=== PATIENT | female | born 1965 | race Caucasian/White ===

== ENCOUNTER 2017-06-24 23:00 | Emergency (ER) | payer BC, OTHER ==
[~2017-06-24] VITALS: Ht 172.7 cm; Wt 110.0 kg
[~2017-06-24 23:00] MED LIST: FLUO20TA20 PO; GABA300 PO; GABA600T PO; GLUCTAB PO; METF500 PO; PROZ20CA11 PO
[2017-06-24 23:08] VITALS: BP 208/98; PULSE 86; RESP 18; TEMP 98.5; O2SAT 98
[2017-06-24] MEDS ORDERED: LIDOCAINE HCL 1% 50 ML VIAL INFIL ONE (23:15)
[2017-06-24] MEDS ORDERED: METF1000 PO (23:20)
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
[2017-06-24] MEDS ORDERED: TETANUS/DIPHTHERIA TOXOID ADULT 0.5 ML VIAL IM ONE (23:30)
[2017-06-24 23:50] LABS: AUTOMATED NEUTROPHIL # 3.8 TH/MM3 (1.8-7.7); BASOPHIL % 0.5 % (0.0-2.0); EOSINOPHIL # 0.6 TH/MM3 (0-0.4); EOSINOPHIL % 8.4 % (0.0-4.0); HEMATOCRIT 35.1 % (35.0-46.0); HEMO FLAGS DIFF FINAL; LYMPH % 26.1 % (9.0-44.0); LYMPHOCYTE # 1.8 TH/MM3 (1.0-4.8); MEAN CELL VOLUME 92.2 FL (80.0-100.0); MEAN CORPUSCULAR HEMOGLOBIN 30.8 PG (27.0-34.0); MEAN CORPUSCULAR HGB CONC 33.4 % (32.0-36.0); MONO % 11.1 % (0.0-8.0); NEUT % 53.9 % (16.0-70.0); PLATELET COUNT 186 TH/MM3 (150-450); RED BLOOD COUNT 3.81 MIL/MM3 (4.00-5.30); RED CELL DISTRIBUTION WIDTH 13.6 % (11.6-17.2); WHITE BLOOD COUNT 7.1 TH/MM3 (4.0-11.0)
[2017-06-24 23:57] LABS: APTT (PATIENT) 33.4 SEC (24.3-30.1); INTERNATIONAL NORMALIZED RATIO 1.1 RATIO; PROTHROMBIN TIME - PATIENT 12.2 SEC (9.8-11.6)
[2017-06-25 00:09] LABS: ANION GAP 8 MEQ/L (5-15); AST (GOT) 73 U/L (15-37); BICARBONATE 25.6 MEQ/L (21.0-32.0); BLOOD UREA NITROGEN 16 MG/DL (7-18); CHLORIDE 106 MEQ/L (98-107); GLOMERULAR FILTRATION RATE 70 ML/MIN (>89); POTASSIUM 3.6 MEQ/L (3.5-5.1); SODIUM (NA) 140 MEQ/L (136-145)
[2017-06-25 00:10] LABS: ALT (GPT) 70 U/L (10-53)
[2017-06-25 00:12] LABS: ALKALINE PHOSPHATASE 69 U/L (45-117); TOTAL BILIRUBIN ADULT 0.8 MG/DL (0.2-1.0)
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
[2017-06-25] MEDS ORDERED: KETOROLAC TROMETHAMINE 30 MG/ML (IVP) VIAL IV PUSH ONE (00:45)
[2017-06-25] MEDS ORDERED: MOBI15TA PO (00:54)
[2017-06-25] MEDS ORDERED: ULTR50TA5 PO (00:54)
--- NOTE | 2017-06-25 01:44 | PD ---
Physical Exam Time Seen by Provider: 01:43 Data Data Last Documented VS Vital Signs Date Time Temp Pulse Resp B/P (MAP) Pulse Ox O2 Delivery O2 Flow Rate FiO2 06/24/17 23:08 98.5 86 18 208/98 (134) 98 Orders Orders Lidocaine 1% Inj (50 Ml) (Xylocaine 1% I (06/24/17 23:15) Finger ([id number]) (06/24/17 23:16) Complete Blood Count With Diff (06/24/17 23:17) Comprehensive Metabolic Panel (06/24/17 23:17) Prothrombin Time / Inr (Pt) (06/24/17 23:17) Act Partial Throm Time (Ptt) (06/24/17 23:17) Urinalysis - C+S If Indicated (06/24/17 23:17) Chest, Single Ap (06/24/17 23:17) Iv Access Insert/Monitor (06/24/17 23:17) Ecg Monitoring (06/24/17 23:17) Oximetry (06/24/17 23:17) Ed Urine Pregnancytest Poc (06/24/17 23:17) Femur (Ap & Lat/2vws) (06/24/17 23:17) Hip, Uni(Ap&Lat) Wo Ap Pelvis (06/24/17 23:17) Hip, Uni(Ap&Lat) W Ap Pelvis (06/24/17 23:17) Tibia/Fibula (Ap/Lat) (06/24/17 23:17) Spine, Lumbar - Ltd (Ap & Lat) (06/24/17 23:21) Spine, Cervical - Ltd (Ap&Lat) (06/24/17 23:22) Tetanus/Diphtheria Tox Adult (Tetanus/Di (06/24/17 23:30) Ketorolac Inj (Toradol Inj) (06/25/17 00:45) Labs Laboratory Tests Test 06/24/17 23:30 White Blood Count 7.1 TH/MM3 Red Blood Count 3.81 MIL/MM3 Hemoglobin 11.7 GM/DL Hematocrit 35.1 % Mean Corpuscular Volume 92.2 FL Mean Corpuscular Hemoglobin 30.8 PG Mean Corpuscular Hemoglobin Concent 33.4 % Red Cell Distribution Width 13.6 % Platelet Count 186 TH/MM3 Mean Platelet Volume 9.3 FL Neutrophils (%) (Auto) 53.9 % Lymphocytes (%) (Auto) 26.1 % Monocytes (%) (Auto) 11.1 % Eosinophils (%) (Auto) 8.4 % Basophils (%) (Auto) 0.5 % Neutrophils # (Auto) 3.8 TH/MM3 Lymphocytes # (Auto) 1.8 TH/MM3 Monocytes # (Auto) 0.8 TH/MM3 Eosinophils # (Auto) 0.6 TH/MM3 Basophils # (Auto) 0.0 TH/MM3 CBC Comment DIFF FINAL Differential Comment Prothrombin Time 12.2 SEC Prothromb Time International Ratio 1.1 RATIO Activated Partial Thromboplast Time 33.4 SEC Blood Urea Nitrogen 16 MG/DL Creatinine 0.85 MG/DL Random Glucose 86 MG/DL Total Protein 7.8 GM/DL Albumin 3.3 GM/DL Calcium Level 8.8 MG/DL Alkaline Phosphatase 69 U/L Aspartate Amino Transf (AST/SGOT) 73 U/L Alanine Aminotransferase (ALT/SGPT) 70 U/L Total Bilirubin 0.8 MG/DL Sodium Level 140 MEQ/L Potassium Level 3.6 MEQ/L Chloride Level 106 MEQ/L Carbon Dioxide Level 25.6 MEQ/L Anion Gap 8 MEQ/L Estimat Glomerular Filtration Rate 70 ML/MIN MDM Medical Record Reviewed: Yes Supervised Visit with LEANNE: No Procedures Procedure Narrative Verbal consent was obtained prior to procedure The digit was prepped with Betadine. 1% lidocaine is acting using a sterile 25- gauge needle into the base of the left fourth digit, adequate anesthesia was obtained. Mild traction is applied to the digit and the middle phalange is realigned without difficulty. Digit remains neurovascularly intact. Plantars applied. Patient tolerated this well. Diagnosis Primary Impression: Dislocation of finger, interphalangeal joint, left, closed Qualified Codes: S63.279A - Dislocation of unspecified interphalangeal joint of unspecified finger, initial encounter Additional Impression: Multiple contusions Patient Instructions: General Instructions Departure Forms: Tests/Procedures Additional Instruction: Take medications as needed for pain. Follow up with hand surgeon Scripts Tramadol (Ultram) 50 Mg Tab 50 MG PO Q6H Y for PAIN, #12 TAB 0 Refills Prov: Jayesh Anthony MD 06/25/17 Meloxicam (Mobic) 15 Mg Tab 15 MG PO DAILY for Pain, #20 TAB 0 Refills Prov: Jayesh Anthony MD 06/25/17 Disposition: 01 DISCHARGE HOME Condition: Stable Ana Maria Linton Jun 25, 2017 01:44
== END 2017-06-25 01:45 | disposition home or self-care (01) ==
LOC: NEPC 23:00
DX: S63.285A Dislocation of proximal interphalangeal joint of left ring finger, initial encounter (principal); F17.210 Nicotine dependence, cigarettes, uncomplicated; F14.90 Cocaine use, unspecified, uncomplicated; E11.9 Type 2 diabetes mellitus without complications; V09.9XXA Pedestrian injured in unspecified transport accident, initial encounter; Y92.410 Unspecified street and highway as the place of occurrence of the external cause; Z79.84 Long term (current) use of oral hypoglycemic drugs; Z23 Encounter for immunization
CPT/HCPCS: 71010; 72040; 72100; 73140; 73502; 73552; 73590; 80053; 84703; 85025; 85610; 85730; 90471; 90714